=== PATIENT | female | born 1955 | race Caucasian/White ===

== ENCOUNTER 2018-05-02 17:29 | Emergency (ER) | payer OTHER ==
[~2018-05-02] VITALS: Ht 165.1 cm; Wt 117.9 kg
[~2018-05-02 17:29] MED LIST: ASPIRIN81 M2; FISH OIL 1,0001 EAC7; IRON; IRON TABLET1 EACH; PREMARIN0.625 MG; PREMARIN0.625 MG PO; PROZAC 20 MG20 M1; PROZAC 20 MG20 M1 PO; SYNTHROID75 MCG; SYNTHROID75 MCG PO
[2018-05-02] MEDS ORDERED: LISINOPRIL10 MG PO (17:51)
[2018-05-02] MEDS ORDERED: PRILOSEC2.5 MG PO (17:51)
[2018-05-02] MEDS ORDERED: ASPIR 8181 MG PO (17:51)
[2018-05-02] MEDS ORDERED: LIPITOR10 MG PO (17:51)
[2018-05-02] MEDS ORDERED: OSTERA TABLET1 EAC1 PO (17:51)
[2018-05-02] MEDS ORDERED: ZOFRAN ODT4 MG PO (19:41)
[2018-05-02] MEDS ORDERED: NORCO 5-325 TA1 EACH PO (19:41)
[2018-05-02 20:00] VITALS: BP 103/51
== END 2018-05-02 20:00 | disposition home or self-care (01) ==
LOC: M.ERS 17:29
DX: S82.891A Other fracture of right lower leg, initial encounter for closed fracture (principal); S82.434A Nondisplaced oblique fracture of shaft of right fibula, initial encounter for closed fracture; S00.03XA Contusion of scalp, initial encounter; S60.511A Abrasion of right hand, initial encounter; R42 Dizziness and giddiness; E03.9 Hypothyroidism, unspecified; F32.9 Major depressive disorder, single episode, unspecified; Z88.5 Allergy status to narcotic agent; Z88.7 Allergy status to serum and vaccine; Z90.710 Acquired absence of both cervix and uterus; Z86.2 Personal history of diseases of the blood and blood-forming organs and certain disorders involving the immune mechanism; Z90.49 Acquired absence of other specified parts of digestive tract; W01.0XXA Fall on same level from slipping, tripping and stumbling without subsequent striking against object, initial encounter; Y93.89 Activity, other specified; Y92.89 Other specified places as the place of occurrence of the external cause; Y99.8 Other external cause status

== ENCOUNTER → 2019-02-17 | Outpatient (CLI) | payer OTHER ==
[~2019-02-17] MED LIST changes: +ASPIR 8181 MG PO; +IRON325 PO; +LIPITOR10 MG PO; +LISINOPRIL10 MG PO; +NORCO 5-325 TA1 EACH PO; +OSTERA TABLET1 EAC1 PO; +PRILOSEC2.5 MG PO; +ZOFRAN ODT4 MG PO
== END ==
LOC: M.RAD 12:32
DX: Z12.31 Encounter for screening mammogram for malignant neoplasm of breast (principal)

== ENCOUNTER → 2020-04-19 | Outpatient (CLI) | payer MEDICARE | LOC: M.RAD 07:09 | PROVIDERS: ATTEND Internal Medicine | DX: Z12.31 Encounter for screening mammogram for malignant neoplasm of breast (principal) ==

== ENCOUNTER → 2021-06-26 | Outpatient (CLI) | payer OTHER | LOC: M.RAD 14:20 | PROVIDERS: ATTEND Internal Medicine | DX: Z12.31 Encounter for screening mammogram for malignant neoplasm of breast (principal) ==